=== PATIENT | female | born 1975 ===

== ENCOUNTER 2017-11-28 09:32 | Outpatient (CLI) | payer OTHER | END 2017-11-28 09:43 | disposition home or self-care (01) | LOC: SONOGRAMA 09:32 | DX: N60.11 Diffuse cystic mastopathy of right breast (principal); N60.12 Diffuse cystic mastopathy of left breast ==

== ENCOUNTER 2020-10-21 07:59 | Outpatient (CLI) | payer OTHER | END 2020-10-21 08:08 | disposition home or self-care (01) | LOC: SONOGRAMA 07:59 → MAMO-SONO 08:00 → SONOGRAMA 08:08 | PROVIDERS: ATTEND Obstetrics & Gynecology | DX: D25.9 Leiomyoma of uterus, unspecified (principal) ==